=== PATIENT | female | born 1980 | race Caucasian/White ===

== ENCOUNTER → 2024-05-03 | Outpatient (CLI) | payer OTHER ==
--- NOTE | 2024-05-04 08:28 | XR ---
EXAMINATION TYPE: XR shoulder complete RT DATE OF EXAM: 05/03/2024 CLINICAL HISTORY: pain TECHNIQUE: Three views of the right shoulder are obtained. COMPARISON: None FINDINGS: There is no acute fracture/dislocation evident. The acromioclavicular and glenohumeral ishmael int spaces appear within normal limits. The visualized ribs are intact and unremarkable. IMPRESSION: 1. There is no acute fracture or dislocation. ICD 10 NO FRACTURE, INITIAL EVALUATION
--- NOTE | 2024-05-04 08:28 | XR ---
EXAMINATION TYPE: XR knee complete RT DATE OF EXAM: 05/03/2024 CLINICAL HISTORY: pain TECHNIQUE: Three views of the right knee are obtained. COMPARISON: None. FINDINGS: There is no acute fracture/dislocation. The tri-compartment joint spaces appear within no rmal limits. The overlying soft tissue appears unremarkable. IMPRESSION: There is no acute fracture or dislocation.ICD 10 NO FRACTURE, INITIAL EVALUATION
--- NOTE | 2024-05-04 08:30 | XR ---
EXAMINATION TYPE: XR Hip Complete RT DATE OF EXAM: 05/03/2024 CLINICAL HISTORY: pain TECHNIQUE: AP and frogleg views of the right hip are obtained. COMPARISON: None. FINDINGS: There is no acute fracture/dislocation evident. The joint space appears within normal li mits. The overlying soft tissue appears unremarkable. IMPRESSION: 1. There is no acute fracture or dislocation. ICD 10 NO FRACTURE, INITIAL EVALUATION
== END | disposition home or self-care (01) ==
LOC: RADXRMAIN 14:22
PROVIDERS: ATTEND Internal Medicine
DX: M25.551 Pain in right hip (principal); M25.511 Pain in right shoulder; M25.561 Pain in right knee
CPT/HCPCS: 73502

== ENCOUNTER 2024-08-02 09:25 | Day surgery (SDC) | payer OTHER ==
[2024-07-31 13:07] VITALS: BMI 48.9
[~2024-08-02 09:25] MED LIST: LACTATED RINGERS 1,000 ML IV SCH
--- NOTE | 2024-08-02 09:48 | P.GSHP ---
History of Present Illness H&P Date: 08/02/24 CHIEF COMPLAINT: Anemia HISTORY OF PRESENT ILLNESS: The patient is a 44-year-old female who presents with anemia for over 6 months. Upper and lower endoscopy were offered for further evaluation and management. PAST MEDICAL HISTORY: Please see list. PAST SURGICAL HISTORY: Please see list. MEDICATIONS: Please see list. ALLERGIES: Please see list. SOCIAL HISTORY: No illicit drug use FAMILY HISTORY: No reports of Crohn disease or ulcerative colitis. REVIEW OF ORGAN SYSTEMS: CONSTITUTIONAL: No reports of fevers or chills. GI: Denies any blood in stools or constipation. PHYSICAL EXAM: VITAL SIGNS: Stable GENERAL: Well-developed pleasant in no acute distress. HEENT: No scleral icterus. Extraocular movements grossly intact. Moist buccal mucosa. NECK: Supple without lymphadenopathy. CHEST: Unlabored respirations. Equal bilateral excursions. CARDIOVASCULAR: Regular rate and rhythm. Distal 2+ pulses. ABDOMEN: Soft, nondistended. MUSCULOSKELETAL: No clubbing, cyanosis, or edema. ASSESSMENT: 1. Anemia PLAN: 1. Recommend proceeding with an upper and lower endoscopy Past Medical History Past Medical History: GERD/Reflux, Thyroid Disorder Additional Past Medical History / Comment(s): Asbergers, polycystic ovarian History of Any Multi-Drug Resistant Organisms: None Reported Past Surgical History: Bariatric Surgery, Section, Cholecystectomy Additional Past Surgical History / Comment(s): facial surgery 06/06/2004 c section, ,egd, gastric bypass 2018 Past Anesthesia/Blood Transfusion Reactions: No Reported Reaction Additional Past Anesthesia/Blood Transfusion Reaction / Comment(s): no blood transfusion Smoking Status: Former smoker - Past Family History Mother Family Medical History: Diabetes Mellitus Father Additional Family Medical History / Comment(s): kidney failure Medications and Allergies Home Medications Medication Instructions Recorded Confirmed Type Levothyroxine Sodium [Synthroid] 75 mcg PO DAILY 30 Days tablet 08/20/14 07/31/24 Rx Levothyroxine Sodium [Synthroid] 100 mcg PO DAILY 30 Days tab 08/20/14 07/31/24 Rx ARIPiprazole [Abilify] 10 mg PO HS 10/29/23 07/31/24 History Azelastine/Fluticasone 1 spray EA NOSTRIL DAILY 10/29/23 07/31/24 History [Azelastin-Flutic 137-50Mcg Spr] Fluticasone Nasal [place] [Flonase 1 spray EA NOSTRIL DAILY 10/29/23 07/31/24 His tory Nasal [place]] Loratadine 10 mg PO DAILY 10/29/23 07/31/24 History Omeprazole 40 mg PO DAILY PRN 10/29/23 07/31/24 History Sertraline [Zoloft] 100 mg PO HS 10/29/23 07/31/24 History metFORMIN HCL [Glucophage] 1,000 mg PO HS 10/29/23 07/31/24 History Allergies Allergy/AdvReac Type Severity Reaction Status Date / Time carbamazepine [From Tegretol] Allergy Unknown Verified 07/31/24 13:01 lamotrigine [From Lamictal] Allergy Anaphylaxis Verified 07/31/24 13:01
[2024-08-02] MEDS: IV FLUID CONTINUATION 1,000 ML IV ONE (10:08)
[2024-08-02 10:11] VITALS: TEMP 97
[2024-08-02] MEDS ORDERED: PROPOFOL 10 MG/ML 20 ML VIAL IV ONE (10:43)
[2024-08-02] MEDS ORDERED: LIDOCAINE 1% INJ 10MG/ML (20 ML MDV) ONE (10:43)
--- NOTE | 2024-08-02 11:12 | P.PCN ---
Date of Procedure: 08/02/24 Description of Procedure: PREOPERATIVE DIAGNOSIS: Anemia History of gastric bypass Morbid obesity due to excess calories, BMI 48.7 POSTOPERATIVE DIAGNOSIS: Anemia History of gastric bypass Morbid obesity due to excess calories, BMI 48.7 OPERATION: Esophagogastroduodenoscopy with biopsies along esophagus, gastric pouch and jejunum SURGEON: Taylor Chapa MD ANESTHESIA: MAC. INDICATIONS: The patient is a 44-year-old male who presents with unexplained anemia. Benefits and risks of the procedure were described. Informed consent was obtained. DESCRIPTION: The patient was brought into the endoscopy suite and laid in the left lateral decubitus position. An Olympus gastroscope was passed along the posterior oropharynx down to the distal esophagus where the squamocolumnar junction was encountered at 35 cm from the incisors. The stomach was entered and no bile reflux was found. Additional findings are listed below. Biopsies with cold forceps were obtained of the gastric pouch. Anastomosis was widely patent. Biopsies were obtained of the jejunum, gastric pouch and esophagus. The stomach was desufflated. The patient tolerated the procedure well. FINDINGS: Diaphragmatic hiatus 35 cm. Gastrojejunal anastomosis at 40 cm Gastric pouch 5 cm LA grade A erosive esophagitis. Biopsies obtained of gastric pouch. Widely patent anastomosis at 40 cm without foreign body. RECOMMENDATIONS: Upper endoscopy as needed.
[2024-08-02 11:51] VITALS: RESP 15
--- NOTE | 2024-08-02 11:52 | P.PCN ---
Date of Procedure: 08/02/24 Description of Procedure: PREOPERATIVE DIAGNOSIS: Anemia Morbid obesity due to excess calories, BMI 48.7 POSTOPERATIVE DIAGNOSIS: Anemia Morbid obesity due to excess calories, BMI 48.7 OPERATION: Colonoscopy to the hepatic flexure SURGEON: Taylor Chapa MD. ANESTHESIA: MAC. INDICATIONS: The patient is a 44-year-old female who with anemia of unclear etiology. She presents for first colonoscopy. Benefits and risks were described and informed consent was obtained. DESCRIPTION OF PROCEDURE: The patient had undergone GoLytely prep. She had been brought into the operating room and laid in the left lateral decubitus position. After adequate intravenous sedation, the rectum was examined with 2% lidocaine jelly. No external hemorrhoids were encountered. The rectal tone was loose. No lesions were palpated in the rectal vault. An Olympus colonoscope was advanced along the rectum to a very redundant and tortuous sigmoid colon. Despite multiple maneuvers, the sigmoid colon had severe tortuosity preventing further advancement of scope beyond hepatic flexure despite advancing the scope to the hub. No evidence of polyps were identified of the visualized mucosa. The colon was desufflated. The patient had tolerated the procedure well. Withdrawal time was over 6 minutes. FINDINGS: [place] preparation quality scale 1+(1-5) Tortuous sigmoid colon highly redundant with scope to the hub limited to the hepatic flexure External prolapsed hemorrhoids. No arteriovenous malformations. No adenomatous polyps limited to the hepatic flexure. No focal colitis. RECOMMENDATIONS: Completion of colonoscopy evaluation with barium enema. Plan - Discharge Summary Discharge Rx Participant: No New Discharge Prescriptions: Continue Levothyroxine Sodium [Synthroid] 75 mcg PO DAILY 30 Days tablet Levothyroxine Sodium [Synthroid] 100 mcg PO DAILY 30 Days tab Azelastine/Fluticasone [Azelastin-Flutic 137-50Mcg Spr] 1 spray EA NOSTRIL DAILY Sertraline [Zoloft] 100 mg PO HS metFORMIN HCL [Glucophage] 1,000 mg PO HS Omeprazole 40 mg PO DAILY PRN PRN Reason: gerd ARIPiprazole [Abilify] 10 mg PO HS Loratadine 10 mg PO DAILY Fluticasone Nasal [place] [Flonase Nasal [place]] 1 spray EA NOSTRIL DAILY Discharge Medication List Levothyroxine Sodium [Synthroid] 75 mcg PO DAILY 30 Days tablet 08/20/14 [Rx] Levothyroxine Sodium [Synthroid] 100 mcg PO DAILY 30 Days tab 08/20/14 [Rx] ARIPiprazole [Abilify] 10 mg PO HS 10/29/23 [History] Azelastine/Fluticasone [Azelastin-Flutic 137-50Mcg Spr] 1 spray EA NOSTRIL DAILY 10/29/23 [History] Fluticasone Nasal [place] [Flonase Nasal [place]] 1 spray EA NOSTRIL DAILY 10/29/23 [History] Loratadine 10 mg PO DAILY 10/29/23 [History] Omeprazole 40 mg PO DAILY PRN 10/29/23 [History] Sertraline [Zoloft] 100 mg PO HS 10/29/23 [History] metFORMIN HCL [Glucophage] 1,000 mg PO HS 10/29/23 [History] Follow up Appointment(s)/Ref[facility] [place] [facility] - 08/16/24 3:00 pm Patient Instructions/Handouts: Barium Enema (DC) Activity/Diet/Wound Care/Special Instructions: Repeat colonoscopy in 2 years, age 46 Discharge Disposition: HOME SELF-CARE
[2024-08-02 12:02] VITALS: BP 102/71; PULSE 57
--- NOTE | 2024-08-02 13:33 | XR ---
EXAMINATION TYPE: XR KUB DATE OF EXAM: 08/02/2024 COMPARISON: None INDICATION: Incomplete colonoscopy TECHNIQUE: Single view abdomen supine view FINDINGS: There is abundant bowel gas throughout the abdomen. Surgical sutures in the left mid abdomen. No mass effect is evident. Psoas margins are normal. No organomegaly is present. IMPRESSION: 1. Prominent bowel gas post colonoscopy. [facility], , 08/02/2024 1:30 PM
== END 2024-08-02 12:30 | disposition home or self-care (01) ==
LOC: ORWHC2ENDO 09:25
PROVIDERS: ATTEND Surgery Plastic and Reconstructive Surgery
DX: K21.00 Gastro-esophageal reflux disease with esophagitis, without bleeding (principal); E66.01 Morbid (severe) obesity due to excess calories; K21.9 Gastro-esophageal reflux disease without esophagitis; E07.9 Disorder of thyroid, unspecified; F41.9 Anxiety disorder, unspecified; F31.9 Bipolar disorder, unspecified; H91.90 Unspecified hearing loss, unspecified ear; E28.2 Polycystic ovarian syndrome; D64.9 Anemia, unspecified; Z68.42 Body mass index [BMI] 45.0-49.9, adult; Z79.890 Hormone replacement therapy; Z87.891 Personal history of nicotine dependence; Z90.49 Acquired absence of other specified parts of digestive tract; Z98.84 Bariatric surgery status; Z98.890 Other specified postprocedural states; Z79.899 Other long term (current) drug therapy; Z88.8 Allergy status to other drugs, medicaments and biological substances
CPT/HCPCS: 81025; 88305; 74018; 45378; 43239; J2001; J2704

== ENCOUNTER → 2024-08-03 | Outpatient (CLI) | payer OTHER ==
--- NOTE | 2024-08-03 10:17 | FL ---
EXAMINATION TYPE: FL barium enema DATE OF EXAM: 08/03/2024 9:32 AM CLINICAL INDICATION:Female, 44 years old with history of FAILED COLONOSCOPY; COMPARISON: 08/02/2024 TECHNIQUE: The procedure was explained and patient history elicited. All patient questions were answ ered prior to beginning. Multiple spot fluoroscopic images of the colon were obtained after the recta l administration of liquid barium as the contrast agent. Multiple postprocedural overhead images, w ere obtained and reviewed. Fluoroscopic time: 6 minutes 14 seconds min Fluoroscopic images: 0 Radiographs taken: 50 DAP: Not reported [id number] FINDINGS: The splicer apprentice abdominal radiograph demonstrates a normal bowel gas pattern without dilated loo ps of small or large bowel. There is no evidence for organomegaly or pneumoperitoneum. No abnormal calcifications. The visualized osseous structures are intact. The colon is markedly redundant. No filling defects visualized. The colon demonstrates normal course and contour without evidence of focal stricture, internal filling defects, or abnormal outpouching. Views of the cecum with manual compression are unremarkable. Postevacuation images are unremarkable. IMPRESSION: Markedly redundant colon which limits evaluation. No filling defects visualized. [facility], , 08/03/2024 10:15 AM
== END | disposition home or self-care (01) ==
LOC: RADFLMAIN 07:46
PROVIDERS: ATTEND Surgery Plastic and Reconstructive Surgery
DX: Q43.8 Other specified congenital malformations of intestine (principal)
CPT/HCPCS: 74270

== ENCOUNTER → 2024-08-16 | Outpatient (CLI) | payer OTHER ==
[2024-08-16 15:25] VITALS: BP 134/87; PULSE 69; RESP 16; TEMP 97.4; BMI 48.6
--- NOTE | 2024-08-16 16:18 | P.BASOAP ---
Subjective Progress Note Date: 08/16/24 Robotic lysis of adhesions with bypass. Barium enema long colon. Has high risk of volvulus. Has vit A, D, OTH elevation. Iron supplement for bariatric patients. Has recurrent adbominal pain. Cardiac clearance needed for abnormal EKG. Objective - Vital Signs Vital signs: Vital Signs Temp 97.4 F L 08/16/24 15:18 Pulse 69 08/16/24 15:18 Resp 16 08/16/24 15:18 BP 134/87 08/16/24 15:18 Pulse Ox FiO2 Intake & Output 08/15/24 08/16/24 08/16/24 18:59 06:59 18:59 Weight 130.635 kg Assessment/Plan Plan: Date: 08/16/24 Initial Weight: 131.598 kg Initial BMI: 49.0 Current Weight: 130.635 kg Current BMI: 48.6 Type of Surgery: Total Volume in Band: Previous Volume: Volume Removed: Volume Added: Band Size:
== END ==
LOC: BARWHC3 14:40
PROVIDERS: ATTEND Surgery Plastic and Reconstructive Surgery
DX: E66.01 Morbid (severe) obesity due to excess calories (principal); F17.200 Nicotine dependence, unspecified, uncomplicated; Z88.8 Allergy status to other drugs, medicaments and biological substances; Z68.42 Body mass index [BMI] 45.0-49.9, adult
CPT/HCPCS: 99211

== ENCOUNTER → 2024-10-18 | Outpatient (CLI) | payer OTHER ==
--- NOTE | 2024-10-20 17:02 | MM ---
Reason for Exam: Screening (asymptomatic). Last mammogram was performed 2 year(s) and 2 month(s) ago. Patient History: Menarche at age 19. First Full-Term at age 23. Perimenopausal. Risk Values: Lorena 5 year model risk: 0.6%. NCI Lifetime model risk: 8.0%. Prior Study Comparison: 08/25/2022 Bilateral Screening Mammogram, [facility]. Tissue Density: The breasts are heterogeneously dense, which may obscure small masses. Findings: Analyzed By CAD. There are a few new areas of asymmetric density at a middle depth within the left breast. These areas may represent superimposition shadow but further evaluation is recommended. Otherwise, no significant change. Overall Assessment: Incomplete: need additional imaging evaluation, BI-RAD 0 Management: Special View Mammogram of the left breast. Diagnostic Breast Ultrasound of the left breast. [facility] will attempt to contact patient to return for supplemental views and ultrasound if indicated. [facility], , 10/20/2024 4:59 PM. Electronically signed and approved by: Jane Cavazos M.D. Radiologist
== END | disposition home or self-care (01) ==
LOC: RADMAMWWP 14:32
PROVIDERS: ATTEND Obstetrics & Gynecology
DX: Z12.31 Encounter for screening mammogram for malignant neoplasm of breast (principal); R92.333 Mammographic heterogeneous density, bilateral breasts
CPT/HCPCS: 77067

== ENCOUNTER → 2024-10-27 | Outpatient (CLI) | payer OTHER ==
--- NOTE | 2024-10-27 10:46 | MM ---
Reason for Exam: Additional evaluation requested from abnormal screening. Last screening mammogram was performed less than 1 month ago. Patient History: Menarche at age 19. First Full-Term at age 23. Perimenopausal. Risk Values: Lorena 5 year model risk: 0.6%. NCI Lifetime model risk: 8.0%. Prior Study Comparison: 08/25/2022 Bilateral Screening Mammogram, [facility] . 10/18/2024 Bilateral MG screening mammo w CAD, [facility]. Tissue Density: Left: The breasts are heterogeneously dense, which may obscure small masses. Findings: Analyzed By CAD. Pattern appears stable. No suspicious persistent abnormality on compression views No suspicious groups of microcalcifications, spiculated or lobular masses, architectural distortion or other secondary signs of malignancy are mammographically apparent. Overall Assessment: Probably benign, BI-RAD 3 Management: Diagnostic Mammogram of the left breast in 6 months. A negative mammogram report should not preclude additional follow up of suspicious palpable abnormalities. Patient should continue monthly self breast exam. A clinical breast exam by your physician is recommended on an annual basis and results should be correlated with mammographic findings. Note on Lorena scores and lifetime risk: 1. A Lorena score greater than 3% is considered moderate risk. If this is the case, consider specialist referral to assess eligibility for a risk reducing agent. 2. If overall lifetime risk for the development of breast cancer is 20% or higher, the patient may qualify for future screening with alternating mammogram and breast MRI. [facility], , 10/27/2024 10:42 AM. Electronically signed and approved by: Betito Gil D.O. Radiologis
== END | disposition home or self-care (01) ==
LOC: RADMAMWWP 10:01
PROVIDERS: ATTEND Obstetrics & Gynecology
DX: R92.8 Other abnormal and inconclusive findings on diagnostic imaging of breast (principal); R92.333 Mammographic heterogeneous density, bilateral breasts
CPT/HCPCS: 77065; G0279; 77061

== ENCOUNTER → 2025-01-10 | Outpatient (CLI) | payer OTHER ==
--- NOTE | 2025-01-10 15:20 | XR ---
EXAMINATION TYPE: XR chest 2V DATE OF EXAM: 01/10/2025 2:00 PM COMPARISON: 09/12/2014 CLINICAL INDICATION: Female, 44 years old with history of R05 cough, TECHNIQUE: XR chest 2V view(s) obtained. FINDINGS: The heart size is normal. The pulmonary vasculature is normal. The lungs are clear. IMPRESSION: 1. No acute pulmonary process. [facility], , 01/10/2025 3:17 PM
== END | disposition home or self-care (01) ==
LOC: RADXRMAIN 13:50
PROVIDERS: ATTEND Internal Medicine Geriatric Medicine
DX: R05.9 Cough, unspecified (principal)
CPT/HCPCS: 71046

== ENCOUNTER → 2025-04-05 | Outpatient (CLI) | payer OTHER ==
--- NOTE | 2025-04-05 11:00 | MM ---
Reason for Exam: Follow-up at short interval from prior study. Last screening mammogram was performed 5 month(s) ago. Patient History: Menarche at age 19. First Full-Term at age 23. Perimenopausal. Risk Values: Lorena 5 year model risk: 0.6%. NCI Lifetime model risk: 8.0%. Prior Study Comparison: 08/25/2022 Bilateral Screening Mammogram, [facility] . 10/18/2024 Bilateral MG screening mammo w CAD, [facility]. 10/27/2024 Left MG 3D work up w/cad , [facility]. Tissue Density: Left: The breasts are heterogeneously dense, which may obscure small masses. Findings: Analyzed By CAD. Area of concern in the left breast which are multiple asymmetry seen on 10/18/2024 compressed out on spot compression imaging. No suspicious masses, calcifications or distortions. No persistent asymmetries are visualized. Overall Assessment: Benign, BI-RAD 2 Management: Screening Mammogram of both breasts in 6 months. Results were given to the patient verbally at the time of exam. Patient should continue monthly self-breast exams. A clinical breast exam by your physician is recommended on an annual basis. This exam should not preclude additional follow-up of suspicious palpable abnormalities. Note on Lroena scores and lifetime risk: 1. A Lorena score greater than 3% is considered moderate risk. If this is the case, consider specialist referral to assess eligibility for a risk reducing agent. 2. If overall lifetime risk for the development of breast cancer is 20% or higher, the patient may qualify for future screening with alternating mammogram and breast MRI. [facility], , 04/05/2025 10:48 AM. Electronically signed and approved by: Dexter Longoria DO
== END | disposition home or self-care (01) ==
LOC: RADMAMWWP 10:14
PROVIDERS: ATTEND Obstetrics & Gynecology
DX: R92.8 Other abnormal and inconclusive findings on diagnostic imaging of breast (principal); R92.2 Inconclusive mammogram; R92.30 Dense breasts, unspecified; R92.332 Mammographic heterogeneous density, left breast
CPT/HCPCS: 77065; G0279; 77061

== ENCOUNTER 2025-05-02 10:56 | Emergency (ER) | payer OTHER ==
[2025-05-02 11:02] VITALS: TEMP 98.6
--- NOTE | 2025-05-02 11:27 | ED ---
Animal Bite HPI - General Chief Complaint: Animal Bite Stated Complaint: Animal Bite Time Seen by Provider: 05/02/25 11:07 Source: patient, RN notes reviewed Mode of arrival: ambulatory Limitations: no limitations - History of Present Illness Initial Comments: 44 year old female presents emergency room with a cat bite that occurred yesterday afternoon of her right forearm. Patient states that she was feeding the stray cats that she normally does every day one of the cats excellently put her in the arm. She states her last tetanus vaccination was in the last 3 years. She denies fevers, chills, nausea, vomiting. Patient is declining rabies vaccination series. - Related Data Home Medications Medication Instructions Recorded Confirmed ARIPiprazole [Abilify] 10 mg PO HS 10/29/23 12/08/24 Azelastine/Fluticasone 1 spray EA NOSTRIL DAILY 10/29/23 12/08/24 [Azelastin-Flutic 137-50Mcg Spr] Fluticasone Nasal [place] [Flonase 1 spray EA NOSTRIL DAILY 10/29/23 12/08/24 Nasal [place]] Loratadine 10 mg PO DAILY 10/29/23 12/08/24 Omeprazole 40 mg PO DAILY PRN 10/29/23 12/08/24 Sertraline [Zoloft] 100 mg PO HS 10/29/23 12/08/24 metFORMIN HCL [Glucophage] 1,000 mg PO HS 10/29/23 12/08/24 Cholecalciferol [Vitamin D3 (125 2 tab PO WEEKLY 08/16/24 12/08/24 Mcg = 5000 Iu)] norethindrone-e.estradioL-iron 1 each PO DAILY 11/27/24 12/08/24 [Junel Fe 1.5 mg-30 Mcg Tablet] Previous Rx's Medication Instructions Recorded Levothyroxine Sodium [Synthroid] 75 mcg PO DAILY 30 Days tablet 08/20/14 Levothyroxine Sodium [Synthroid] 100 mcg PO DAILY 30 Days tab 08/20/14 Amoxic-Pot Clav 600-42.9MG/5Ml 5 ml PO Q12H 10 Days #100 ml 05/02/25 [Augmentin 600-42.9 mg/5 ml Liquid] Allergies Allergy/AdvReac Type Severity Reaction Status Date / Time carbamazepine [From Tegretol] Allergy Unknown Verified 05/02/25 11:01 lamotrigine [From Lamictal] Allergy Anaphylaxis Verified 05/02/25 11:01 Review of Systems ROS Statement: Those systems with pertinent positive or pertinent negative responses have been documented in the HPI. ROS Other: All systems not noted in ROS Statement are negative. Past Medical History Past Medical History: Thyroid Disorder Additional Past Medical History / Comment(s): Asbergers, polycystic ovarian, orthostatic hypotension History of Any Multi-Drug Resistant Organisms: None Reported Past Surgical History: Section Additional Past Surgical History / Comment(s): facial surgery 06/06/2004 c section, broken nose surgery 2021 Past Anesthesia/Blood Transfusion Reactions: No Reported Reaction Past Psychological History: Anxiety, Bipolar, Depression Smoking Status: Former smoker - Past Family History Mother Family Medical History: Diabetes Mellitus Father Additional Family Medical History / Comment(s): kidney failure General Exam Limitations: no limitations General appearance: alert, in no apparent distress Neck exam: Present: normal inspection. Absent: tenderness, meningismus, lymphadenopathy Respiratory exam: Present: normal lung sounds bilaterally. Absent: respiratory distress, wheezes, rales, rhonchi, stridor Cardiovascular Exam: Present: regular rate, normal rhythm, normal heart sounds. Absent: systolic murmur, diastolic murmur, rubs, gallop, clicks GI/Abdominal exam: Present: soft, normal bowel sounds. Absent: distended, tend erness, guarding, rebound, rigid Right Forearm Wrist exam: Present: tenderness (bite) Course Vital Signs 05/02/25 05/02/25 10:58 12:04 Temperature 98.6 F Pulse Rate 96 84 Respiratory 17 12 Rate Blood Pressure 127/84 124/80 O2 Sat by Pulse 98 100 Oximetry Medical Decision Making - Medical Decision Making Was pt. sent in by a medical professional or institution (, PA, FIRE PROTECTION INSPECTOR, urgent care, hospital, or care home...) When possible be specific @ -No Did you speak to anyone other than the patient for history (EMS, parent, family, police, friend...)? What history was obtained from this source @ -No Did you review nursing and triage notes (agree or disagree)? Why? @ -I reviewed and agree with nursing and triage notes Were old charts reviewed (outside hosp., previous admission, EMS record, old EKG, old radiological studies, urgent care reports/EKG's, care home records)? Report findings @ -No old charts were reviewed Differential Diagnosis (chest pain, altered mental status, abdominal pain women, abdominal pain men, vaginal bleeding, weakness, fever, dyspnea, syncope, headache, dizziness, GI bleed, back pain, seizure, CVA, palpatations, mental health, musculoskeletal)? @ -Animal bite, cellulitis EKG interpreted by me (3pts min.). @ -None X-rays interpreted by me (1pt min.). @ -None done CT interpreted by me (1pt min.). @ -None done U/S interpreted by me (1pt. min.). @ -None done What testing was considered but not performed or refused? (CT, X-rays, U/S, labs)? Why? @ -None What meds were considered but not given or refused? Why? @ -None Did you discuss the management of the patient with other professionals (professionals i.e. , PA, FIRE PROTECTION INSPECTOR, lab, RT, psych nurse, social welfare clerk, general road foreman, teacher, property disposal officer, director of casework department)? Give summary @ -No Was smoking cessation discussed for >3mins.? @ -No Was critical care preformed (if so, how long)? @ -No Were there social determinants of health that impacted care today? How? (Homelessness, low income, unemployed, alcoholism, drug addiction, transportation, low edu. Level, literacy, decrease access to med. care, care home, rehab)? @ -No Was there de-escalation of care discussed even if they declined (Discuss DNR or withdrawal of care, Hospice)? DNR status @ -No What co-morbidities impacted this encounter? (DM, HTN, Smoking, COPD, CAD, Cancer, CVA, ARF, Chemo, Hep., AIDS, mental health diagnosis, sleep apnea, morbid obesity)? @ -None Was patient admitted / discharged? Hospital course, mention meds given and route, prescriptions, significant lab abnormalities, going to OR and other pertinent info. @ -Discharge. 44 year old female presents emergency room with complaint of a cat bite. There is a erythematous area with no purulence of the right forearm with no redness streaking. Vitals are stable. Patient abided with outpatient prescription for Augmentin. Return parameters discussed. Patient was offered rabies vaccination series however declined. Case discussed with attending Dr. Mckeon Undiagnosed new problem with uncertain prognosis? @ -No Drug Therapy requiring intensive monitoring for toxicity (Heparin, Nitro, Insulin, Cardizem)? @ -No Were any procedures done? @ -No Diagnosis/symptom? @ -Cat bite Acute, or Chronic, or Acute on Chronic? @ -Acute Uncomplicated (without systemic symptoms) or Complicated (systemic symptoms)? @ -Uncomplicated Side effects of treatment? @ -No Exacerbation, Progression, or Severe Exacerbation? @ -No Poses a threat to life or bodily function? How? (Chest pain, [place], OR, pneumonia, PE, COPD, DKA, ARF, appy, cholecystitis, CVA, Diverticulitis, Homicidal, Suicidal, threat to staff... and all critical care pts) @ -No Disposition Clinical Impression: Cat bite Disposition: HOME SELF-CARE Condition: Good Instructions (If sedation given, give patient instructions): Animal Bite (ED) Additional Instructions: Please return to the emergency department if any new or worsening symptoms. Prescriptions: Amoxic-Pot Clav 600-42.9MG/5Ml [Augmentin 600-42.9 mg/5 ml Liquid] 5 ml PO Q12H 10 Days #100 ml Is patient prescribed a controlled substance at d/c from ED?: No Referrals: Joaquin Daniel MD [Primary Care Provider] - 1-2 days Time of Disposition: 11:26
[2025-05-02 12:05] VITALS: BP 124/80; PULSE 84; RESP 12
== END 2025-05-02 12:10 | disposition home or self-care (01) ==
LOC: EC 10:56
DX: S51.851A Open bite of right forearm, initial encounter (principal); Z87.891 Personal history of nicotine dependence; Z88.8 Allergy status to other drugs, medicaments and biological substances; W55.01XA Bitten by cat, initial encounter
CPT/HCPCS: 99283